=== PATIENT | female | born 1985 | race Caucasian/White ===

== ENCOUNTER 2023-05-22 07:57 | Inpatient (IN) ==
[2023-05-22] MEDS ORDERED: LIDOCAINE 1% LOCAL 20 ML VIAL INFIL PRN (20:37)
[2023-05-22] MEDS ORDERED: OXYTOCIN 30 UNITS/500 ML BAG IV PRN ×2 (20:37→20:47)
[2023-05-22] MEDS ORDERED: PENICILLIN G POTASSIUM 6 MU in DEXTROSE 5% 250 ML IV STA (20:41)
[2023-05-22 21:04] LABS: Hematocrit (blood only) 39.6 % (37.0-47.0); Hemoglobin 13.7 g/dl (12.0-16.0); Mean Corpuscular Hemoglobin 30.4 pg (25.0-34.0); Mean Corpuscular Hgb Conc 34.6 g/dL (32.0-36.0); Mean Platelet Volume 11.4 fL (9.4-12.4); Platelet Count 241 K/uL (130-400); RDW Coefficient of Variation 13.3 % (11.5-14.5); RDW Standard Deviation 42.9 fL (36.4-46.3); White Blood Count 13.05 K/ul (4.8-10.8)
[2023-05-22] MEDS: LACTATED RINGER'S 1,000 ML IV PRN (21:13)
[2023-05-23] MEDS: PENICILLIN G POTASSIUM 3 MU in DEXTROSE 5% 100 ML IV PRN ×3 (01:30→09:42)
[2023-05-23] MEDS ORDERED: ePHEDrine sulfate 50 MG/ML AMP ONE (07:16)
[2023-05-23] MEDS ORDERED: BUPIVACAINE 0.25% PF 30 ML VIAL ONE (07:16)
[2023-05-23] MEDS ORDERED: SODIUM CHLORIDE 0.9% PF INJ 10 ML VIAL ONE (07:16)
[2023-05-23] MEDS ORDERED: fentaNYL citrate PF 100 MCG/2 ML VIAL ONE (07:16)
[2023-05-23] MEDS ORDERED: LIDOCAINE 2%/EPINEPHRINE 1:200,000 20 ML PF ONE (07:16)
[2023-05-23] MEDS ORDERED: fentaNYL 2MCG/ML ROPIVACAINE 1.25MG/ML 100 ML BAG EPI ONE (07:17)
[2023-05-23] MEDS: LACTATED RINGER'S 1,000 ML IV PRN (07:19)
[2023-05-23] MEDS ORDERED: fentaNYL citrate PF 100 MCG/2 ML VIAL EPI STA (07:35)
[2023-05-23] MEDS ORDERED: ePHEDrine sulfate 50 MG/ML AMP IV PRN (07:35)
[2023-05-23] MEDS ORDERED: NALOXONE HCL 0.4 MG/1 ML VIAL/CARP IV PRN (07:35)
[2023-05-23] MEDS ORDERED: diphenhydrAMINE 50 MG/ML VIAL IV PRN (07:35)
[2023-05-23] MEDS ORDERED: BUPIVACAINE 0.25% PF 30 ML VIAL EPI STA (07:35)
[2023-05-23] MEDS ORDERED: BUPIVACAINE 0.25% PF 30 ML VIAL EPI PRN (07:35)
[2023-05-23] MEDS ORDERED: NALBUPHINE HCL INJ 10 MG/ML AMP IV PRN (07:35)
[2023-05-23] MEDS ORDERED: fentaNYL 2MCG/ML ROPIVACAINE 1.25MG/ML 100 ML BAG EPI PRN (07:35)
[2023-05-23] MEDS ORDERED: SODIUM CHLORIDE 0.9% PF INJ 10 ML VIAL EPI STA (07:35)
[2023-05-23] MEDS ORDERED: LIDOCAINE 2%/EPINEPHRINE 1:200,000 20 ML PF EPI STA (07:35)
[2023-05-23] MEDS ORDERED: ROPIVACAINE 0.5% PF 5 MG/ML 20 ML VIAL EPI PRN (07:35)
[2023-05-23] MEDS ORDERED: SODIUM CHLORIDE 0.9% PF INJ 10 ML VIAL EPI PRN (07:35)
[2023-05-23] MEDS ORDERED: fentaNYL citrate PF 100 MCG/2 ML VIAL EPI PRN (07:35)
[2023-05-23] MEDS ORDERED: NALOXONE HCL 1 MG in SODIUM CHLORIDE 0.9% 1000ML 1,000 ML IV PRN (07:35)
[2023-05-23] MEDS ORDERED: LIDOCAINE 2% MPF LOCAL 5 ML VIAL EPI PRN (07:35)
--- NOTE | 2023-05-23 07:35 | Anesthesiology Consultation ---
Date of Service May 23, 2023 Assessment & Plan (1) Encounter for pre-operative examination: Chart Review Chart Review: Patient NOT seen in Pre Admission Testing and Acceptable Risk for Labor Epidural Consults Requested none History Height/Weight Height: 5 ft 5 in Weight: 86.183 kg Allergies Allergy/AdvReac Type Severity Reaction Status Date / Time No Known Allergies Allergy Mild Verified 05/22/23 20:17 Medications Home Medications Medication Instructions Recorded Confirmed Last Taken prenat.vits,john,drt-bztn-[id number] 1 tab PO DAILY 10/14/22 05/22/23 05/21/23 cetirizine 10 mg capsule (Zyrtec) 10 mg PO DAILY 05/22/23 05/22/23 05/21/23 famotidine 20 mg tablet (Pepcid) 20 mg PO DAILY 05/22/23 05/22/23 05/21/23 Active Medications Generic Name Dose Route Start Last Admin Trade Name Freq PRN Reason Stop Dose Admin Lactated Ringer's 1,000 mls @ 125 mls/hr 05/22/23 20:37 05/23/23 07:19 Lr IV 05/24/23 20:36 999 mls/hr .Q8H PRN Administration L&D Protocol Protocol Penicillin G Potassium 3 mu/ 106 mls @ 100 mls/hr 05/22/23 23:37 05/23/23 06:55 Dextrose IV 06/01/23 23:36 Infused Q4H PRN Infusion GBS(+) Until Delivery Oxytocin 30 units in 500 mls @ 14 mls/hr 05/22/23 20:47 05/23/23 06:55 Pitocin IV 05/24/23 20:46 0.84 units/hr .Q24H PRN 14 mls/hr Labor Induction/Augmentation Titration Protocol 0.84 UNITS/HR Past Medical History Medical History Breast lump History of chicken pox Seasonal allergies Past Family History Family History Aunt Breast cancer Mother Hypertension Father Hypertension Bladder cancer Denies family history of Ovarian cancer Colorectal cancer Past Surgical History Surgical History S/P breast lumpectomy Left S/P wisdom tooth extraction Social History Smoking Status: Never smoker Do You Dip or Chew Tobacco: No Hx Alcohol Use: No Hx Substance Use: No substance use type: does not use Physical Exam Vital Signs Last Vital Signs Temp 98.4 F 05/23/23 07:00 Pulse 67 05/23/23 07:00 Resp 20 05/23/23 07:00 BP 124/73 05/23/23 07:00 Testing Laboratory Results 05/22/23 20:47
--- NOTE | 2023-05-23 08:35 | Labor Progress Brief Note ---
Date of Service May 23, 2023 Subjective I am taking over care of patient on-call, she has rec'd epidural. FHT Cat 1, toco Q 2. Once comfortable, will check cervix and consider AROM. GBS prophylaxis PCN. Assessment & Plan Admission and Anticipated Discharge Date Admission Date: May 22, 2023 Results & Data Vital Signs (Past 12 Hours) Vital Signs Temp Pulse Resp BP Pulse Ox 05/23/23 07:00 36.9 C 20 05/23/23 08:30 84 20 99 05/23/23 08:31 83 110/63 05/23/23 08:27 78 109/65 05/23/23 08:25 74 98 05/23/23 08:20 73 99 05/23/23 08:21 81 105/64 05/23/23 08:19 71 102/61 05/23/23 08:17 75 95/57 L 05/23/23 08:15 72 20 91/50 L 99 05/23/23 08:13 74 94/51 L 05/23/23 08:11 93/56 L 05/23/23 08:10 86 18 99 05/23/23 08:09 81 92/55 L 05/23/23 08:01 20 05/23/23 08:01 20 05/23/23 08:07 20 05/23/23 08:07 81 20 106/55 L 05/23/23 08:05 99 05/23/23 08:05 103 H 05/23/23 08:05 105 H 113/59 L 05/23/23 08:03 100 H 125/71 05/23/23 08:00 93 H 100 05/23/23 07:59 93 H 128/66 05/23/23 07:56 80 138/75 05/23/23 07:55 83 100 05/23/23 07:50 84 100 05/23/23 07:45 89 99 05/23/23 07:00 67 124/73 05/23/23 05:43 69 125/71 05/23/23 04:44 71 115/68 05/23/23 03:54 16 05/23/23 03:54 36.9 C 16 05/23/23 03:44 66 104/59 L 05/23/23 02:43 66 115/64 05/23/23 01:43 65 100/55 L 05/23/23 00:44 68 101/56 L 05/22/23 23:43 64 99/58 L 05/22/23 23:19 16 05/22/23 23:19 36.7 C 16 05/22/23 22:43 70 111/70 05/22/23 21:43 73 117/74 Coding Level of Care Code None Diagnoses
--- NOTE | 2023-05-23 08:48 | Labor Progress Brief Note ---
Date of Service May 23, 2023 Subjective Comfortable with epidural. FHT Cat 1, toco Q2. SVE 5/90/-1 AROM clear fluid, tinge of pink. Continue labor. Assessment & Plan Admission and Anticipated Discharge Date Admission Date: May 22, 2023 Results & Data Vital Signs (Past 12 Hours) Vital Signs Temp Pulse Resp BP Pulse Ox 05/23/23 07:00 36.9 C 20 05/23/23 08:45 80 100 05/23/23 08:42 86 143/72 H 05/23/23 08:40 100 H 100 05/23/23 08:38 81 117/59 L 05/23/23 08:35 73 99 05/23/23 08:30 84 20 99 05/23/23 08:31 83 110/63 05/23/23 08:27 78 109/65 05/23/23 08:25 74 98 05/23/23 08:20 73 99 05/23/23 08:21 81 105/64 05/23/23 08:19 71 102/61 05/23/23 08:17 75 95/57 L 05/23/23 08:15 72 20 91/50 L 99 05/23/23 08:13 74 94/51 L 05/23/23 08:11 93/56 L 05/23/23 08:10 86 18 99 05/23/23 08:09 81 92/55 L 05/23/23 08:01 20 05/23/23 08:01 20 05/23/23 08:07 20 05/23/23 08:07 81 20 106/55 L 05/23/23 08:05 99 05/23/23 08:05 103 H 05/23/23 08:05 105 H 113/59 L 05/23/23 08:03 100 H 125/71 05/23/23 08:00 93 H 100 05/23/23 07:59 93 H 128/66 05/23/23 07:56 80 138/75 05/23/23 07:55 83 100 05/23/23 07:50 84 100 05/23/23 07:45 89 99 05/23/23 07:00 67 124/73 05/23/23 05:43 69 125/71 05/23/23 04:44 71 115/68 05/23/23 03:54 16 05/23/23 03:54 36.9 C 05/23/23 03:44 66 104/59 L 05/23/23 02:43 66 115/64 05/23/23 01:43 65 100/55 L 05/23/23 00:44 68 101/56 L 05/22/23 23:43 64 99/58 L 05/22/23 23:19 16 05/22/23 23:19 36.7 C 05/22/23 22:43 70 111/70 05/22/23 21:43 73 117/74 Coding Level of Care Code None Diagnoses
--- NOTE | 2023-05-23 11:29 | Delivery Summary ---
Vaginal Delivery Summary Date of Service May 23, 2023 Vaginal Delivery Summary and 2nd Degree LAC Vaginal Delivery Summary: Pre-delivery diagnoses: 38yo @ 39 11/19, IOL, GBS+, AMA Post-delivery diagnoses: same Procedure: spontaneous vaginal delivery Surgeon: Amanda Moreau DO Complications: none Findings: Viable male . Apgars: 8/9. Weight pending, please see nursery records. Estimated blood loss: 300ml Description of delivery: The patient was admitted last night for elective induction of labor. She rec'd mendosa bulb, this fell out shortly after it was placed. She recieved pitocin and progressed to complete with epidural anesthesia. She then began to push. She spontaneously vaginally delivered a viable from the cephalic presentation. The head delivered in JOHNATHON position. Nuchal cord x 1, easily reduced. Prior to delivery of anterior shoulder, the posterior hand was delivering spontaneously, therefore this was fully delivered, followed by the anterior shoulder, followed by the body. The baby was placed on mother's abdomen and a spontaneous cry was heard. Delayed cord clamping was employed, and the cord was doubly clamped and cut. Cord blood was obtained. The placenta was delivered spontaneously intact with a 3-vessel cord. The uterus and vagina were swept of clots and debris. IV pitocin was given. The uterus became firm. The cervix, vagina, and perineum were inspected and a 2nd degree perineal laceration was noted and repaired with 3-0 Vicryl in standard fashion. Excellent hemostasis was observed. The mother and baby are recovering in stable and good condition in the room. Sponge, needle and instrument counts were correct x 2. Amanda Moreau DO [facility] [place]aginal Delivery Charge Vaginal Delivery Codes: 93120 global code for the antepartum, delivery, and post- Delivery Type Details: and 2nd Degree LAC
[2023-05-23] MEDS ORDERED: bisacodyL 10 MG SUPP PR PRN (11:48)
[2023-05-23] MEDS ORDERED: OXYTOCIN 30 UNITS/500 ML BAG IV PRN (11:48)
[2023-05-23] MEDS ORDERED: BENZOCAINE 20% AER SPR 82.5 GM CAN EXT PRN (11:48)
[2023-05-23] MEDS ORDERED: DIPHTHERIA/TETANUS/PERTUSSIS Vaccine (Tdap, Age 7+yrs) 0.5mL SYR/VL IM ONE (11:48)
[2023-05-23] MEDS ORDERED: HYDROCORTISONE ACETATE 25 MG SUPP PR PRN (11:48)
[2023-05-23] MEDS ORDERED: ACETAMINOPHEN W/CODEINE #3 1 TAB PO PRN (11:48)
[2023-05-23] MEDS ORDERED: FAMOTIDINE 20 MG TAB PO PRN (11:48)
--- NOTE | 2023-05-23 13:47 | Anesthesia Procedure Note ---
Date of Service May 23, 2023 Anesthesia Post Epidural Note Vital Signs Vital Signs: Temp Pulse Resp BP Pulse Ox 97.9 F 88 20 121/70 98 05/23/23 10:30 05/23/23 13:40 05/23/23 13:25 05/23/23 13:40 05/23/23 11:40 Pain Intensity Abdomen: Pain Intensity: 0 Notes Mental Status: alert / awake / arousable and participated in evaluation Nausea / Vomiting: adequately controlled Pain: adequately controlled Airway Patency, RR, SpO2: stable & adequate BP & HR: stable & adequate Hydration State: stable & adequate Neuraxial Anesthesia: was administered and sensory block is resolving Anesthetic Complications: no major complications apparent and Pt Satisfied with anesthetic care Epidural: Removed without complications and With tip intact
[2023-05-23] MEDS: IBUPROFEN 600 MG TAB PO PRN (15:17)
[2023-05-23] MEDS: ACETAMINOPHEN 325 MG TAB PO PRN (19:33)
[2023-05-23] MEDS: DOCUSATE SODIUM 100 MG CAP PO SCH (20:47)
[2023-05-24] MEDS: IBUPROFEN 600 MG TAB PO PRN ×3 (00:03→09:08)
--- NOTE | 2023-05-24 06:00 | Obstetrical Progress Note ---
Date of Service <Nadia Mims Carmella - Last Filed: 05/24/23 07:17> May 24, 2023 Assessment & Plan <Nadia Chavezjanellekade - Last Filed: 05/24/23 07:17> (1) care following vaginal delivery: Feels well today. Eating well, voiding well, ambulating well. Pain well controlled with prn analgesics tylenol/ibuprofen. Routine care; OOB, ambulation, continue regular OB diet. After discharge will have 6 week follow-up with Dr. Moreau. <Amanda Moreau, DO - Last Filed: 05/24/23 07:18> (1) care following vaginal delivery: Subjective <Nadia Mims Jessykade - Last Filed: 05/24/23 07:17> Pt is a 38 y/o female who is PPD 1 following at 39 1/7 weeks. She reports feeling overall well this morning. Minimal abdominal cramping and 3/10 pain well managed on prn analgesics. Voiding on own without discomfort. Tolerating meals overnight and able to ambulate on own. She is passing gas but has not had a bowel movement since delivery. Has some persistent lochia with some improvement this morning. Currently bottle feeding. She is GBS + and received penicillin G this admission on 05/22. Constitutional: no fever, no chills or no sweats Respiratory: no dyspnea Cardiovascular: no chest pain or no palpitations Breast: no breast pain Genitourinary (female): no dysuria Neurologic: no headache(s) no changes in vision, no headaches Physical Exam <Nadia Mims Carmella - Last Filed: 05/24/23 07:17> General: Alert, oriented. No acute distress. Cardiac: Regular rate and rhythm, no murmurs, rubs, or gallops. Respiratory: Clear to auscultation bilaterally a/p, no wheezes/rales/rhonchi. No increased work of breathing. Symmetrical chest rise. No respiratory distress. Abdomen: Soft, nontender, nondistended. Bowel sounds present. Uterus: Uterine fundus firm. Lower extremities: No lower extremity edema or swelling. No deep calf pain. Linda's negative bilaterally. Results & Data <Nadia Felicita Weir DO - Last Filed: 05/24/23 07:17> Vital Signs (Past 12 Hours) Vital Signs Temp Pulse Resp BP Pulse Ox O2 Del Method 05/24/23 03:51 36.5 C 71 14 112/64 99 Room Air 05/23/23 23:40 36.6 C 70 16 101/66 97 Room Air 05/23/23 19:21 36.7 C 78 16 118/76 96 Room Air <Amanda Moreau, - Last Filed: 05/24/23 07:18> Co-Signing Physician Notes Resident Physician Supervision Note: I was present with Dr. Weir during the history and exam. I discussed the case with the resident and agree with the findings and plan as documented in the note. Any exceptions or clarifications are listed here: PPD#1 doing well. Plan for followup 6w pp. Reviewed DC instructions, she'd like to go home. Documented By: Amanda Moreau DO Resident Activity Tracking <Nadia Weir, - Last Filed: 05/24/23 07:17> Resident Involvement: Resident Care Provided Care Provided: OB Delivery
[2023-05-24 06:26] LABS: Hemoglobin 12.2 g/dl (12.0-16.0)
[2023-05-24] MEDS: ACETAMINOPHEN 325 MG TAB PO PRN (07:43)
[2023-05-24] MEDS: DOCUSATE SODIUM 100 MG CAP PO SCH (07:44)
[2023-05-24] MEDS ORDERED: PRENATAL VITAMIN 1 TAB PO SCH (08:00)
[2023-05-24] MEDS ORDERED: CETIRIZINE HCL 10 MG TABLET PO SCH (09:00)
[2023-05-24] MEDS ORDERED: bisacodyL 5 MG TABEC PO SCH (20:00)
== END 2023-05-24 14:00 | disposition home or self-care (01) | DRG 807 ==
LOC: 4S1 20:02 → 4E2 05-23 14:55